=== PATIENT | male | born 1990 | race Caucasian/White ===

== ENCOUNTER 2020-04-17 07:39 | Emergency (ER) | payer OTHER, SELFPAY ==
[2020-04-17 08:07] VITALS: BP 124/75; PULSE 84; RESP 18; TEMP 36.9; O2SAT 98; BMI 29.9
--- NOTE | 2020-04-17 08:33 | ED.PSYCH ---
HPI - Psych General Chief Complaint: Psychiatric Symptoms <JODY Whyte - Last Filed: 04/17/20 15:00> Stated Complaint: CRISIS <JODY Whyte - Last Filed: 04/17/20 15:00> Time Seen by Provider: 04/17/20 08:13 <JODY Whyte Last Filed: 04/17/20 15:00> Source: patient and family <JODY Whyte - Last Filed: 04/17/20 15:00> Mode of arrival: ambulatory <JODY Whyte - Last Filed: 04/17/20 15:00> Limitations: no limitations <JODY Whyte Last Filed: 04/17/20 15:00> History of Present Illness HPI Narrative: 29 y/o male with history of anxiety, depression, HTN, IVDA recently started on Suboxone who presents to the ED today with reports of increased stress and not feeling right. Patient is very vague historian and most of history was obtained from his girlfriend who brought him to the ER. She reports he was started on Suboxone about 1 week ago and he has had significant behavioral changes since. He is now very paranoid, he is unable to maintain eye contact and acting very strange. Patient admits to continuing to use heroin despite being on Suboxone. First he denied SI but then stated he has been having these thoughts. No specific plan. Denies hallucinations. Father has a history of schizophrenia. <JODY Whyte - Last Filed: 04/17/20 15:00> MD complaint: suicidal ideation, feels depressed and substance abuse <JODY Whyte - Last Filed: 04/17/20 15:00> Onset (ago): week(s) (1) <JODY Whyte - Last Filed: 04/17/20 15:00> Duration: intermittent and changing over time <JODY hWyte - Last Filed: 04/17/20 15:00> History of same: No <JODY Whyte Last Filed: 04/17/20 15:00> Relieving factors: none <JODY Whyte Last Filed: 04/17/20 15:00> Exacerbating factors: drug use <JODY Whyte - Last Filed: 04/17/20 15:00> Context: recent drug abuse <JODY Whyte - Last Filed: 04/17/20 15:00> Associated psychiatric symptoms: depression and suicidal ideation <JODY Whyte - Last Filed: 04/17/20 15:00> Associated symptoms: denies other symptoms <JODY Whyte - Last Filed: 04/17/20 15:00> Treatments prior to arrival: none <JODY Whyte - Last Filed: 04/17/20 15:00> If self harm: admits thoughts of self harm <JODY Whyte - Last Filed: 04/17/20 15:00> Related Data Allergies/Adverse Reactions: Allergies Allergy/AdvReac Type Severity Reaction Status Date / Time No Known Allergies Allergy Unverified 02/23/20 16:53 [No Known Allergies*] <JODY Whyte - Last Filed: 04/17/20 15:00> Review of Systems Review of Systems: Constitutional: No Fever, No Chills Cardiovascular: No Chest Pain, No SOB, No Orthopnea, No Edema Respiratory: No Cough, No Sputum, No Wheezing, No dyspnea Gastrointestinal: No Nausea, No Vomiting, No Diarrhea, No abdominal Pain Genitourinary: No Dysuria, No Urinary Frequency, No Hematuria Musculoskeletal: No joint pain, No Myalgias Skin: No Skin Lesions, No rash Neuro: No Weakness, No Numbness, No Dizziness, No Headache Psych: + Anxiety/Panic, + Depression, No AH, No VH Heme/Lymph: No Bruising, No Lymphadenopathy <JODY Whyte - Last Filed: 04/17/20 15:00> PMF Past Medical History Attestation statement: The following information was validated with the patient. <JODY Whtye - Last Filed: 04/17/20 15:00> Medical History: Medical History Anxiety Depression <JODY Whyte Last Filed: 04/17/20 15:00> Social History Social History: Social History Alcohol intake: former Smoking Status: Former smoker Smoked in Last 30 Days: No Use of substances other than those prescribed or required for medical reasons: No Advance Directives: No Advance Directives Information Provided: No <JODY Whyte - Last Filed: 04/17/20 15:00> Physical Exam Vital Signs: Vital Signs: Last Vital Signs Temp 98.5 F 04/17/20 08:07 Pulse 84 04/17/20 08:07 Resp 18 04/17/20 08:07 BP 124/75 04/17/20 08:07 Pulse Ox 98 04/17/20 08:07 Body Mass Index 29.9 Appearance: Alert. Oriented X3. No acute distress. Eyes: Pupils equal, round and reactive to light. ENT: Pharynx normal. Neck: Normal inspection. CVS: Normal heart rate and rhythm. Pulses normal. Respiratory: No respiratory distress. Breath sounds normal. Abdomen: Soft and nontender. +BS x4 Skin: Skin warm and dry. Normal skin color. Normal skin turgor. No rashes. Extremities: No lower extremity edema. Psych: Oriented X 3. Withdrawn, flat affect. positive SI. Difficulty maintaining eye contact. <JODY Whyte - Last Filed: 04/17/20 15:00> Vital Signs: Last Vital Signs Temp 98.5 F 04/17/20 08:07 Pulse 84 04/17/20 08:07 Resp 18 04/17/20 08:07 BP 124/75 04/17/20 08:07 Pulse Ox 98 04/17/20 08:07 Body Mass Index 29.9 <Haile Quinones MD - Last Filed: 04/20/20 02:02> Course Course Course Narrative: 29 y/o male with anxiety/depression, heroin abuse on Suboxone presenting with new onset paranoia and behavioral changes. Admits to SI. Concern for new onset schizophrenia give his family history. Labs and Utox pending. Will have N see. <JODY Whyte - Last Filed: 04/17/20 15:00> I have reviewed the chart <Haile Quinones MD - Last Filed: 04/20/20 02:02> Reevaluation(s) Reevaluation #1: [facility] saw the patient. Had lengthy discussion with patient's girlfriend who he lives with. Concern for schizophrenia dx given presentation and history. She does not feel he is a threat to himself or others. He is denying SI/HI/AH/VH at this time. Resources were provided and patient will follow up with providers in the community. <JODY Whyte - Last Filed: 04/17/20 15:00> Consultations Consultation #1: ELENA <JODY Whyte - Last Filed: 04/17/20 15:00> MDM - Psych Medical Records Attestation: I reviewed the patient's medical records. <JODY Whyte - Last Filed: 04/17/20 15:00> Lab Data Attestation: I reviewed the patient's lab results. <JODY Whyte - Last Filed: 04/17/20 15:00> Result diagrams: : 04/17/20 08:28 04/17/20 08:28 <JODY Whyte - Last Filed: 04/17/20 15:00> Labs: Lab Results 04/17/20 04/17/20 04/17/20 Range/Units 08:28 08:28 08:28 WBC 11.1 H (4.8-10.8) X10*3/uL RBC 5.43 (4.60-5.80) X10*6/uL Hgb 14.5 (14.0-18.0) g/dl Hct 45.0 (42-52) % MCV 82.9 (80-98) fL MCH 26.7 L (27.0-33.0) pg MCHC 32.2 (31.0-36.0) g/dl RDW 13.7 (11.0-16.0) % Plt Count 372 (160-400) X10*3/uL MPV 8.9 L (9.4-12.4) fL Immature Gran % (Auto) 0.3 (0.0-0.4) % Neut % (Auto) 77.8 H (45-73) % Lymph % (Auto) 12.2 L (20-40) % [place] % (Auto) 8.3 (2-11) % Eos % (Auto) 1.1 (0-4) % Baso % (Auto) 0.3 (0-2) % Lymph # (Auto) 1.4 (1.2-4.9) X10*3/uL [place] # (Auto) 0.9 (0.1-1.2) X10*3/uL Eos # (Auto) 0.1 (0.0-0.4) X10*3/uL Baso # (Auto) 0.0 (0.0-0.2) X10*3/uL Abs Immat Gran (auto) 0.03 (0.00-0.03) X10*3/uL Absolute Neuts (auto) 8.7 H (2.0-8.3) X10*3/uL Absolute Nucleated RBC 0.000 (0.0-0.012) X10*3/uL Nucleated RBC % (auto) 0.0 (0.0-0.2) /100WBC Sodium 141 (135-145) mmol/L Potassium 4.0 (3.3-5.1) mmol/l Chloride 105 (96-108) mmol/L Carbon Dioxide 27 (22-29) mmol/L Anion Gap 13 (12-20) BUN 16 (9-16) mg/dL Creatinine 0.91 (0.5-1.4) mg/dL Estim Creat Clear Calc 115.7 Estimated GFR > 60 Random Glucose 88 (60-115) mg/dL Calcium 9.5 (8.4-10.2) mg/dL Total Bilirubin 0.5 (0.0-1.0) mg/dL AST 25 (5-37) U/L ALT 17 (0-40) U/L Alkaline Phosphatase 105 (39-117) U/L Total Protein 8.0 (6.5-8.0) g/dL Albumin 4.8 (3.5-5.0) g/dL Ethyl Alcohol < 10 mg/dL <JODY Whyte - Last Filed: 04/17/20 15:00> Lab Results 04/17/20 04/17/20 04/17/20 Range/Units 08:28 08:28 08:28 WBC 11.1 H (4.8-10.8) X10*3/uL RBC 5.43 (4.60-5.80) X10*6/uL Hgb 14.5 (14.0-18.0) g/dl Hct 45.0 (42-52) % MCV 82.9 (80-98) fL MCH 26.7 L (27.0-33.0) pg MCHC 32.2 (31.0-36.0) g/dl RDW 13.7 (11.0-16.0) % Plt Count 372 (160-400) X10*3/uL MPV 8.9 L (9.4-12.4) fL Immature Gran % (Auto) 0.3 (0.0-0.4) % Neut % (Auto) 77.8 H (45-73) % Lymph % (Auto) 12.2 L (20-40) % [place] % (Auto) 8.3 (2-11) % Eos % (Auto) 1.1 (0-4) % Baso % (Auto) 0.3 (0-2) % Lymph # (Auto) 1.4 (1.2-4.9) X10*3/uL [place] # (Auto) 0.9 (0.1-1.2) X10*3/uL Eos # (Auto) 0.1 (0.0-0.4) X10*3/uL Baso # (Auto) 0.0 (0.0-0.2) X10*3/uL Abs Immat Gran (auto) 0.03 (0.00-0.03) X10*3/uL Absolute Neuts (auto) 8.7 H (2.0-8.3) X10*3/uL Absolute Nucleated RBC 0.000 (0.0-0.012) X10*3/uL Nucleated RBC % (auto) 0.0 (0.0-0.2) /100WBC Sodium 141 (135-145) mmol/L Potassium 4.0 (3.3-5.1) mmol/l Chloride 105 (96-108) mmol/L Carbon Dioxide 27 (22-29) mmol/L Anion Gap 13 (12-20) BUN 16 (9-16) mg/dL Creatinine 0.91 (0.5-1.4) mg/dL Estim Creat Clear Calc 115.7 Estimated GFR > 60 Random Glucose 88 (60-115) mg/dL Calcium 9.5 (8.4-10.2) mg/dL Total Bilirubin 0.5 (0.0-1.0) mg/dL AST 25 (5-37) U/L ALT 17 (0-40) U/L Alkaline Phosphatase 105 (39-117) U/L Total Protein 8.0 (6.5-8.0) g/dL Albumin 4.8 (3.5-5.0) g/dL Ethyl Alcohol < 10 mg/dL <Haile Quinones MD - Last Filed: 04/20/20 02:02> Discharge Plan Discharge Clinical Impression: Acute paranoia <JODY Whyte - Last Filed: 04/17/20 15:00> Patient Disposition: Home, Self-Care <JODY Whyte - Last Filed: 04/17/20 15:00> Instructions: Stress (ED), Anxiety (ED), Opioid Use Disorder (ED) <JODY Whyte - Last Filed: 04/17/20 15:00> Additional Instructions: Follow up with the providers that were given to you to today to help with your stress and anxiety. You would benefit from psychotherapy. Do not use IV opiates, it can kill you. Continue taking your Suboxone as prescribed. If you develop thoughts of self harm call 911 or come back to the ER for further evaluation. <JODY Whyte - Last Filed: 04/17/20 15:00> Interventions: ED Discharge Assessment Last Done: 04/17/20 15:07 <JODY Whyte - Last Filed: 04/17/20 15:00> Discharge Date/Time: 04/17/20 15:07 <JODY Whyte - Last Filed: 04/17/20 15:00>
[2020-04-17 08:35] LABS: MANUAL DIFF FLAG NO
[2020-04-17 08:38] LABS: Basophils Percent Auto 0.3 % (0-2); Eosinophils Absolute Auto 0.1 X10*3/uL (0.0-0.4); Eosinophils Percent Auto 1.1 % (0-4); Hemoglobin 14.5 g/dl (14.0-18.0); Imm Gran Abs Auto 0.03 X10*3/uL (0.00-0.03); Imm Gran Pct Auto 0.3 % (0.0-0.4); Lymphocytes Absolute Auto 1.4 X10*3/uL (1.2-4.9); Lymphocytes Percent Auto 12.2 % (20-40); Mean Corpuscular HGB Conc 32.2 g/dl (31.0-36.0); Mean Corpuscular Hemoglobin 26.7 pg (27.0-33.0); Mean Corpuscular Volume 82.9 fL (80-98); Mean Platelet Volume 8.9 fL (9.4-12.4); Monocytes Absolute Auto 0.9 X10*3/uL (0.1-1.2); Monocytes Percent Auto 8.3 % (2-11); Neutrophils Absolute Auto 8.7 X10*3/uL (2.0-8.3); Neutrophils Percent Auto 77.8 % (45-73); Platelet Count 372 X10*3/uL (160-400); Red Blood Count 5.43 X10*6/uL (4.60-5.80); Red Cell Distribution Width 13.7 % (11.0-16.0); White Blood Count 11.1 X10*3/uL (4.8-10.8)
[2020-04-17 09:00] LABS: Ethanol < 10 mg/dL
[2020-04-17 09:02] LABS: Alanine Aminotransferase 17 U/L (0-40); Albumin Level 4.8 g/dL (3.5-5.0); Alkaline Phosphatase 105 U/L (39-117); Anion Gap 13 (12-20); Aspartate Amino Transferase 25 U/L (5-37); Bilirubin Total 0.5 mg/dL (0.0-1.0); Blood Urea Nitrogen 16 mg/dL (9-16); Calcium 9.5 mg/dL (8.4-10.2); Carbon Dioxide 27 mmol/L (22-29); Chloride 105 mmol/L (96-108); Creatinine Clr Calc Pharmacy 115.7; Estimated Glomerular Filt Rate > 60; Glucose Random 88 mg/dL (60-115); Sodium 141 mmol/L (135-145)
== END 2020-04-17 15:07 | disposition home or self-care (01) ==
PROVIDERS: Physician Assistant; Emergency Provider Emergency Medicine
DX: F33.1 Major depressive disorder, recurrent, moderate (principal); F22 Delusional disorders; Z87.891 Personal history of nicotine dependence; Z79.899 Other long term (current) drug therapy
CPT/HCPCS: 36415; 80053; 80320; 85025; 99284

== ENCOUNTER 2024-10-07 19:57 | Emergency (ER) | payer MEDICAID, SELFPAY ==
--- NOTE | ~2024-10-07 | CT_ITS ---
CLINICAL HISTORY: found on floor, etoh? OD? CT head without contrast Comparison: None Findings: No intra-axial mass, midline shift, hydrocephalus, or acute hemorrhage. No significant atrophy-like change or white matter disease. Diffuse mucosal thickening of the paranasal sinuses. Complete opacification of the frontal sinuses. The orbits are within normal limits. No skull fracture. IMPRESSION: 1. No acute intracranial findings. This document has been electronically signed by: Sai Coello MD on 10/08/2024 01:28:26
[2024-10-07 20:04] VITALS: BP 106/62; BP 140/72; PULSE 103; PULSE 94; RESP 18; TEMP 36.8; O2SAT 95; O2SAT 96; BMI 31.5
--- NOTE | 2024-10-07 20:10 | ECG_ITS ---
Test Reason : CHECK QT Blood Pressure : */* mmHG Vent. Rate : 88 BPM Atrial Rate : 88 BPM P-R Int : 140 ms QRS Dur : 96 ms QT Int : 480 ms P-R-T Axes : 53 25 34 degrees QTcB Int : 580 ms Normal sinus rhythm Minimal voltage criteria for LVH, may be normal variant ( R in aVL ) Prolonged QT Abnormal ECG When compared with ECG of 06-Nov-2019 10:13, QT has lengthened Referred By: Madeline Ulloa Electronically Signed By: Alfred Smalls
[2024-10-07 20:18] VITALS: PULSE 89
[2024-10-07 20:38] LABS: MANUAL DIFF FLAG NO
[2024-10-07 20:39] LABS: Basophils Percent Auto 0.5 % (0-2); Eosinophils Absolute Auto 0.4 X10*3/uL (0.0-0.4); Eosinophils Percent Auto 4.9 % (0-4); Hematocrit 39.2 % (42.0-52.0); Hemoglobin 12.7 g/dl (14.0-18.0); Imm Gran Abs Auto 0.02 X10*3/uL (0.00-0.03); Imm Gran Pct Auto 0.2 % (0.0-0.4); Lymphocytes Absolute Auto 1.6 X10*3/uL (1.2-4.9); Mean Corpuscular HGB Conc 32.4 g/dl (31.0-36.0); Mean Corpuscular Hemoglobin 26.7 pg (27.0-33.0); Mean Corpuscular Volume 82.5 fL (80.0-98.0); Mean Platelet Volume 9.4 fL (9.4-12.4); Monocytes Absolute Auto 0.9 X10*3/uL (0.1-1.2); Monocytes Percent Auto 10.5 % (2-11); Neutrophils Absolute Auto 5.8 x10*3/uL (2.0-8.3); Neutrophils Percent Auto 65.9 % (45-73); Platelet Count 275 X10*3/uL (160-400); Red Blood Count 4.75 X10*6/uL (4.60-5.80); Red Cell Distribution Width 14.1 % (11.0-16.0); White Blood Count 8.8 X10*3/uL (4.8-10.8)
[2024-10-07 20:53] LABS: Magnesium 2.4 mg/dL (1.6-2.6)
[2024-10-07 20:55] LABS: Alanine Aminotransferase 35 U/L (0-40); Albumin Level 4.1 g/dL (3.5-5.0); Alkaline Phosphatase 110 U/L (39-117); Anion Gap 11 (12-20); Aspartate Amino Transferase 48 U/L (5-37); Bilirubin Total 0.1 mg/dL (0.0-1.0); Blood Urea Nitrogen 20 mg/dL (9-16); Carbon Dioxide 29 mmol/L (22-29); Chloride 109 mmol/L (96-108); Creatinine Clr Calc Pharmacy 99.9; Estimated Glomerular Filt Rate > 60; Ethanol < 10 mg/dL; Glucose Random 127 mg/dL (60-115); Potassium 3.6 mmol/L (3.3-5.1); Sodium 145 mmol/L (135-145); Total Protein 7.2 g/dL (6.5-8.0)
[2024-10-07 20:58] LABS: Acetaminophen LAB < 3 mcg/mL (<30); Salicylate < 5.0 mg/dL (15-30)
[2024-10-07 22:20] VITALS: BP 90/49; PULSE 71; RESP 16; TEMP 36.8; O2SAT 94
[2024-10-08 00:38] VITALS: BP 99/57; PULSE 62; RESP 14; TEMP 36.6; O2SAT 97
--- NOTE | 2024-10-08 00:47 | ED.PSYCH ---
HPI - Psych General Chief Complaint: ETOH/Substance Use Stated Complaint: found on ground, took multiple clonapin, in PC Time Seen by Provider: 10/08/24 00:28 Source: patient and EMS Mode of arrival: EMS Limitations: no limitations History of Present Illness ED Provider: Dr. Sydni Tilley HPI Narrative: Patient comes to the emergency room via EMS. According to EMS, the patient was found down by bystanders sleeping on the ground. Patient states that he took a bunch of clonazepam. When patient arrived, he states that he only took 1 tablet. Patient states that he used drugs, does not want to tell us what drugs use. Patient denies being suicidal or homicidal, denies any injuries. Patient states that he feels very sleepy. Denies hitting his head or losing consciousness. Patient denies being on blood thinners. Related Data Allergies Allergy/AdvReac Type Severity Reaction Status Date / Time No Known Allergies Allergy Verified 10/07/24 20:15 [No Known Allergies*] Review of Systems Review of Systems: Yes Other (Very somnolent) [facility] Past Medical History Medical History Depression Anxiety Social History Social History Alcohol intake: former Smoked in Last 30 Days: Yes Use of substances other than those prescribed or required for medical reasons: Refusing to respond Substance Use Type: Marijuana Do you have a plan to hurt others: No Plan Physical Exam Vital Signs: Vital Signs: Last Vital Signs Temp 98 F 10/08/24 00:38 Pulse 62 10/08/24 00:38 Resp 14 10/08/24 00:38 BP 99/57 L 10/08/24 00:38 Pulse Ox 97 10/08/24 00:38 O2 Del Method Room Air 10/08/24 00:38 BMI result Body Mass Index 31.5 Const: Other: Appearance: Somnolent, easily arousable, but keeps falling asleep Eyes: Pupils equal, round and reactive to light. ENT: Pharynx normal. Neck: Normal inspection. Neck supple. No lymph nodes noted. No crepitus CVS: Normal heart rate and rhythm. Pulses normal. Normal S1 and S2 Respiratory: No respiratory distress. Breath sounds normal. No Wheezing. No rales Abdomen: Soft and nontender. No rigidity. No distention. Skin: Skin warm and dry. Normal skin color. Normal skin turgor. Extremities: No lower extremity edema. No Lacerations. No Rash Neuro: Too somnolent to follow any commands. Psych: calm, somnolent Course Course Course Narrative: All of patient's labs pending, CT scan of the head pending. Patient has no obvious signs of trauma Vitals stable Medical Decision Making Medical Decision Making [facility] Narrative: My interpretation of labs: No significant abnormality in patient's hematology and chemistry, normal LFTs, normal troponin, ETOH, salicylates and acetaminophen levels negative Patient has not provided a urinalysis, still pending CT scan of the head does not show any acute abnormality. When patient becomes more awake, we will reassess again for SI HI. So far, patient has been consistent stating that he is not SI or HI. Patient's vitals stable, patient was able to walk with steady unassisted walk to get his CT scan done, answering questions appropriately. Plan: Metabolize to freedom reassess, based on previous patient's answers, likely to be discharged in the morning Sign-out given to my colleague Dr. Fernandez Differential Diagnosis Differential Diagnoses: The differential diagnosis associated with the presentation includes (Polysubstance abuse, alcohol abuse, head injury) Admission/Observation Consideration of admission/observation: Escalation of care including admission/observation considered (Given patient's presentation, observation is considered. Patient is under physician observation) Lab Data [facility] Lab Attestation statement: I reviewed the patient's lab results. 10/07/24 20:33 10/07/24 20:33 Labs: Lab Results 10/07/24 Range/Units 20:33 WBC 8.8 (4.8-10.8) X10*3/uL RBC 4.75 (4.60-5.80) X10*6/uL Hgb 12.7 L (14.0-18.0) g/dl Hct 39.2 L (42.0-52.0) % MCV 82.5 (80.0-98.0) fL MCH 26.7 L (27.0-33.0) pg MCHC 32.4 (31.0-36.0) g/dl RDW 14.1 (11.0-16.0) % Plt Count 275 (160-400) X10*3/uL MPV 9.4 (9.4-12.4) fL Immature Gran % (Auto) 0.2 (0.0-0.4) % Neut % (Auto) 65.9 (45-73) % Lymph % (Auto) 18.0 L (20-40) % [place] % (Auto) 10.5 (2-11) % Eos % (Auto) 4.9 H (0-4) % Baso % (Auto) 0.5 (0-2) % Lymph # (Auto) 1.6 (1.2-4.9) X10*3/uL [place] # (Auto) 0.9 (0.1-1.2) X10*3/uL Eos # (Auto) 0.4 (0.0-0.4) X10*3/uL Baso # (Auto) 0.0 (0.0-0.2) X10*3/uL Abs Immat Gran (auto) 0.02 (0.00-0.03) X10*3/uL Absolute Neuts (auto) 5.8 (2.0-8.3) x10*3/uL Absolute Nucleated RBC 0.000 (0.0-0.012) X10*3/uL Nucleated RBC % (auto) 0.0 (0.0-0.2) /100WBC Sodium 145 (135-145) mmol/L Potassium 3.6 (3.3-5.1) mmol/L Chloride 109 H (96-108) mmol/L Carbon Dioxide 29 (22-29) mmol/L Anion Gap 11 L (12-20) BUN 20 H (9-16) mg/dL Creatinine 1.03 (0.5-1.4) mg/dL Estim Creat Clear Calc 99.9 Estimated GFR > 60 Random Glucose 127 H (60-115) mg/dL Calcium 9.0 (8.4-10.2) mg/dL Magnesium 2.4 (1.6-2.6) mg/dL Total Bilirubin 0.1 (0.0-1.0) mg/dL AST 48 H (5-37) U/L ALT 35 (0-40) U/L Alkaline Phosphatase 110 (39-117) U/L Troponin I High Sens < 2.7 (<3.5-35.0) ng/L Total Protein 7.2 (6.5-8.0) g/dL Albumin 4.1 (3.5-5.0) g/dL Salicylates < 5.0 L (15-30) mg/dL Acetaminophen < 3 (<30) mcg/mL Ethyl Alcohol < 10 mg/dL Independent Interpretation I performed an independent interpretation of an: CT Scan Radiology Impression Discussion of test interpretation with radiology: I have reviewed the radiologist's reading. Radiologist Impression: No intra-axial mass, midline shift, hydrocephalus, or acute hemorrhage. No significant atrophy-like change or white matter disease. Diffuse mucosal thickening of the paranasal sinuses. Complete opacification of the frontal sinuses. The orbits are within normal limits. No skull fracture. IMPRESSION: 1. No acute intracranial findings. Critical Care Time Critical Care Time Critical Care Time: Yes Total Critical Care Time: 35 Attestation: I have personally provided critical care time. Time includes review of lab data, radiology results, discussion with consultants, and monitoring for potential decompensation. Intervention performed as documented. Discharge Plan Discharge Clinical Impression: Polysubstance abuse Print Language: Wolof
[2024-10-08 00:55] LABS: Troponin-I High Sensitivity < 2.7 ng/L (<3.5-35.0)
[2024-10-08 03:05] VITALS: BP 115/68; PULSE 58; RESP 16; TEMP 36.1; O2SAT 96
[2024-10-08 04:15] VITALS: BP 108/64; PULSE 65; RESP 16; TEMP 36; O2SAT 92
--- NOTE | 2024-10-08 05:38 | PC.NURSE ---
Pt continues to remain sleeping on stretcher.
[2024-10-08 06:31] VITALS: BP 111/64; PULSE 56; RESP 16; TEMP 36.1; O2SAT 94
[2024-10-08 06:51] VITALS: BP 111/64; PULSE 56; RESP 16; TEMP 36.1; O2SAT 94
== END 2024-10-08 06:54 | disposition home or self-care (01) ==
LOC: HO.ED 10-08 06:50
PROVIDERS: Nurse Practitioner Family; Emergency Provider Emergency Medicine
DX: F19.10 Other psychoactive substance abuse, uncomplicated (principal); R40.0 Somnolence
CPT/HCPCS: 36415; 70450; 80053; 80143; 80179; 80307; 83735; 84484; 85025; 93005; 99284; 99285

== ENCOUNTER → 2024-10-07 20:10 | Outpatient (BNV) | payer SELFPAY | PROVIDERS: Emergency Provider Emergency Medicine; Visit Provider Internal Medicine Cardiovascular Disease | DX: I45.81 Long QT syndrome (principal) | CPT/HCPCS: 93010 ==

== ENCOUNTER → 2024-10-08 00:49 | Outpatient (BNV) | payer OTHER, SELFPAY | PROVIDERS: Emergency Provider Emergency Medicine; Visit Provider Radiology Diagnostic Radiology | DX: F19.20 Other psychoactive substance dependence, uncomplicated (principal) | CPT/HCPCS: 70450 ==

== ENCOUNTER 2024-10-22 07:27 | Emergency (ER) | payer MEDICAID, SELFPAY ==
[2024-10-22 07:30] VITALS: BP 121/70; PULSE 69; RESP 18; TEMP 36.8; O2SAT 97; BMI 32.1
--- NOTE | 2024-10-22 08:30 | ED_ITS ---
HPI - Headache General Chief Complaint: Headache Stated Complaint: Migraines Time Seen by Provider: 10/22/24 08:08 Source: patient Mode of arrival: ambulatory Limitations: no limitations History of Present Illness ED Provider: SERGO MILIAN PA-C HPI Narrative: 34-year-old male with pmhx significant for polysubstance abuse presents to the ED today for evaluation of headache x3 months. Reports sharp pains primarily to the left side of his head that have been intermittent x2-3 months. Reports pain occurs approximately one time daily and lasts only seconds before completely resolving. He has not trialed anything at home for the pain. Reports hx of headaches prior to this. Admits to an episode of blurred vision months ago that seemed unrelated to his headache. No episodes of blurred vision or other vision changes since. He does not wear corrective lenses. He denies any symptoms or pain at present. Denies fever, chills, neck pain, vision changes, chest pain/ palpitations, N/V, photophobia, scalp tenderness, jaw claudication. Denies any illicit substance use (specifically cocaine) - states he is on methadone. Denies recent head strikes/ falls/ trauma. Of note, patient was evaluated at our facility two weeks ago on 10/08/[address] Related Data Previous Rx's ?Medication ?Instructions ?Recorded amoxicillin 875 mg-potassium 1 tab PO BID 7 days #14 tabs 10/22/24 clavulanate 125 mg tablet Allergies Allergy/AdvReac Type Severity Reaction Status Date / Time No Known Allergies Allergy Verified 10/22/24 07:36 [No Known Allergies*] Review of Systems 2 Review of Systems: Yes all other systems are reviewed and are negative PMFSH Past Medical History Attestation statement: The following information was validated with the patient. Source: old records reviewed and nursing notes reviewed Medical History Depression Anxiety Social History Social History Alcohol intake: former Smoked in Last 30 Days: Yes Use of substances other than those prescribed or required for medical reasons: No Substance Use Type: Marijuana Advance Directives: No Advance Directives Information Provided: No Physical Exam 2 Vital Signs: Vital Signs: Last Vital Signs Temp 98.2 F 10/22/24 07:30 Pulse 60 10/22/24 09:57 Resp 18 10/22/24 09:57 BP 106/70 10/22/24 09:57 Pulse Ox 99 10/22/24 09:57 O2 Del Method Room Air 10/22/24 09:57 BMI result Body Mass Index 32.1 vital signs stable, afebrile General: Well appearing, in no acute distress. Skin: Warm, dry, intact. No rashes or lesions. Head: Normocephalic, atraumatic. Tender to percussion over left maxillary and frontal sinuses. no scalp tenderness, no palpable temporal artery. EENT: Hearing is intact b/l. Conjunctiva clear. PERRLA. EOM intact. Moist mucous membranes.? Cardiac: Chest wall symmetric. RRR Lungs: Normal respiratory effort without accessory muscle use. CTA bilaterally. Abdomen: Soft, non-tender, non-distended. No rebound tenderness or guarding Back: No midline spinous or paraspinal tenderness. No step off deformity. Ext: Upper and lower extremities atraumatic, without tenderness, deformity, swelling or erythema. Full ROM throughout. Strength 5/5 throughout. Capillary refill <2 seconds in all extremities. Pulses 2+ equal and bilateral. Neuro: AOx3. Normal speech. NIH 0. No pronator drift, slurred speech, facial droop. Strength 5/5 intact throughout. Sensation intact to light touch. NV intact distally. Ambulating with steady gait. Course Course Course Narrative: 0842 -- on chart review, patient was evaluated in our our facility 2 weeks ago on 10/08/2024. Head CT at that time did not reveal acute hemorrhage or mass. Incidental finding of diffuse mucosal thickening of the paranasal sinuses with complete opacification of the frontal sinuses. Otherwise unremarkable. Given his symptoms began 3 months ago and have essentially been unchanged, I do not feel as though repeat imaging is warranted at this time. His history and exam findings are not consistent with acute ischemic stroke or infarct and I do not feel as though CTA head neck is warranted at this time. I discussed this with patient and he feels this is reasonable. Will obtain screening labs to check for electrolyte abnormalities. Inflammatory markers added on to assess for GCA although less likely. Denies any pain/ complaints at present. No medication warranted at this time. 1206 -- CBC without leukocytosis. normocytic anemia, stable when compared to priors. h&h above transfusion threshold. chemistry without acute electrolyte abnormality requiring intervention. no KATHY. liver function wnl. inflammatory markers wnl. delay in serology results as lab did not run the tests. viral serology negative. > work up unremarkable. > on further questioning, patient states he has felt congested recently - he is tender to percussion of frontal and L maxillary sinus. given sinusitis on CT scan 2 weeks ago, will treat w/ PO Augmentin. first dose given in ED today. patient agreeable. advised Tylenol/Motrin at home. neurology referral provided for follow up if symptoms persist. I still do not feel repeat imaging is warranted at this time. Patient has remained stable throughout ED visit today. Discussed worrisome signs and symptoms and when to return to the ED. All questions answered at this time. Patient is agreeable with disposition and stable for discharge. Medications Administered Discontinued Medications Generic Name Dose Route Start Last Admin Trade Name Freq PRN Reason Stop Dose Admin Amoxicillin/Clavulanate Potassium 875 mg 10/22/24 09:37 10/22/24 10:03 Amoxicillin/Potassium Clav 875 Mg Tablet PO 10/22/24 09:38 875 mg ONCE ONE Administration Medical Decision Making Medical Decision Making [facility] Narrative: 34-year-old male with pmhx significant for polysubstance abuse presents to the ED today for evaluation of headache x3 months. Vital signs stable. Afebrile. Differential diagnosis includes anemia, electrolyte abnormality, dehydration, viral syndrome, migraine vs tension type headache, sinusitis. No headache red flags. Neurologic exam without evidence of meningismus. No focal neurologic findings. Presentation not consistent with acute intracranial bleed including SAH. Presentation not consistent with acute [employer] infection including meningitis or brain abscess. Temporal arteritis unlikely, as is acute angle closure glaucoma given history and physical findings. Presentation not consistent with other acute, emergent causes of headache at this time. Plan to treat symptomatically with pain medication. No indication for LP at this time. Plan: labs, viral swabs, reassessment Differential Diagnosis Differential Diagnoses: The differential diagnosis associated with the presentation includes As above Admission/Observation Not indicated Lab Data [facility] Lab Attestation statement: I reviewed the patient's lab results. As above 10/22/24 08:54 10/22/24 08:54 Labs: Lab Results 10/22/24 10/22/24 Range/Units 08:54 09:57 WBC 7.3 (4.8-10.8) X10*3/uL RBC 4.81 (4.60-5.80) X10*6/uL Hgb 12.7 L (14.0-18.0) g/dl Hct 40.3 L (42.0-52.0) % MCV 83.8 (80.0-98.0) fL MCH 26.4 L (27.0-33.0) pg MCHC 31.5 (31.0-36.0) g/dl RDW 14.7 (11.0-16.0) % Plt Count 310 (160-400) X10*3/uL MPV 8.9 L (9.4-12.4) fL Immature Gran % (Auto) 0.3 (0.0-0.4) % Neut % (Auto) 56.3 (45-73) % Lymph % (Auto) 22.1 (20-40) % [place] % (Auto) 9.4 (2-11) % Eos % (Auto) 11.4 H (0-4) % Baso % (Auto) 0.5 (0-2) % Lymph # (Auto) 1.6 (1.2-4.9) X10*3/uL [place] # (Auto) 0.7 (0.1-1.2) X10*3/uL Eos # (Auto) 0.8 H (0.0-0.4) X10*3/uL Baso # (Auto) 0.0 (0.0-0.2) X10*3/uL Abs Immat Gran (auto) 0.02 (0.00-0.03) X10*3/uL Absolute Neuts (auto) 4.1 (2.0-8.3) x10*3/uL Absolute Nucleated RBC 0.000 (0.0-0.012) X10*3/uL Nucleated RBC % (auto) 0.0 (0.0-0.2) /100WBC ESR 10 (0-15) MM/HR Sodium 139 (135-145) mmol/L Potassium 4.2 (3.3-5.1) mmol/L Chloride 105 (96-108) mmol/L Carbon Dioxide 27 (22-29) mmol/L Anion Gap 11 L (12-20) BUN 11 (9-16) mg/dL Creatinine 0.75 (0.5-1.4) mg/dL Estim Creat Clear Calc 138.3 Estimated GFR > 60 Random Glucose 88 (60-115) mg/dL Calcium 8.8 (8.4-10.2) mg/dL Magnesium 1.9 (1.6-2.6) mg/dL Total Bilirubin 0.1 (0.0-1.0) mg/dL AST 22 (5-37) U/L ALT 23 (0-40) U/L Alkaline Phosphatase 105 (39-117) U/L C-Reactive Protein 0.37 (< or = 0.50) mg/dL Total Protein 6.9 (6.5-8.0) g/dL Albumin 3.8 (3.5-5.0) g/dL Influenza Type A (PCR) NEGATIVE (Negative) Influenza Type B (PCR) NEGATIVE (Negative) RSV RNA Qual (PCR) NEGATIVE (Negative) SARS-CoV-2 RNA (RT-PCR) NEGATIVE (Negative) Independent Interpretation I performed an independent interpretation of an: CT Scan Interpretation: CT head/brain from 10/08/2024 without intracranial mass or bleed Radiology Impression Discussion of test interpretation with radiology: I have reviewed the radiologist's reading. Radiologist Impression: Procedure(s): CT head/brain wo IV con Accession Number(s): [id number] cc: Sydni Tilley MD~ Report Number: [id number]: Total DLP = 864.00 mGy-cm CLINICAL HISTORY: found on floor, etoh? OD? CT head without contrast Comparison: None Findings: No intra-axial mass, midline shift, hydrocephalus, or acute hemorrhage. No significant atrophy-like change or white matter disease. Diffuse mucosal thickening of the paranasal sinuses. Complete opacification of the frontal sinuses. The orbits are within normal limits. No skull fracture. IMPRESSION: 1. No acute intracranial findings. This document has been electronically signed by: Sai Coello MD on 10/08/2024 01:28:26 External Record Review External record reviewed: Inpatient record Prescription Management I considered prescription management with: Pain Medication Social Determinants Patient?s care significantly limited by Social Determinants of Health including: Other Social Determinant of Health Critical Care Time Critical Care Time Critical Care Time: No Discharge Plan Discharge Clinical Impression: Sinusitis Patient Disposition: Home, Self-Care Instructions: Sinusitis (ED) Additional Instructions: You have been evaluated in the Emergency Department today for headache. Your blood work is reassuring. You tested negative for covid, flu, and rsv. The CT scan of your head obtained on 10/08/34 (2 weeks ago) does not show any brain mass or bleed. It does show mucosal thickening of your sinuses, consisted with a sinus infection. Given your physical exam findings, you will be treated for sinus infection with oral antibiotics. Augmentin is an antibiotic that has been sent to your pharmacy for treatment. You were given your first dose of this in the ED today. On Augmentin, softer bowel movements are to be expected. Call your provider if you move your bowels more than 4 times a day, your bowel movements are almost all liquid, or you get a rash.? I recommend you take 600mg ibuprofen every 6 hours or Tylenol 650mg every 6 hours as needed for pain. If needed, you can alternate these medications so that you take one medication every 3 hours. For example, at noon take ibuprofen, then at 3pm take Tylenol, then at 6pm take ibuprofen. After discussion, there is no further imaging of your head warranted at this time. Please follow up with your primary care physician within two days. I have also provided you with a referral to a neurologist. You may call them to establish care. They will not call you. Return to the Emergency Department if you experience worsening or uncontrolled pain, vision changes, recurrent vomiting, difficulty with normal activities, abnormal behavior, difficulty walking, numbness, weakness, or any other concerning symptoms. Prescriptions: New amoxicillin-pot clavulanate 875-125 mg tablet 1 tab PO BID 7 Days Qty: 14 0RF Referrals: [facility] [Provider Group] Physician,Unknown J [Primary Care Provider] - Print Language: Slovak
[2024-10-22 08:59] LABS: MANUAL DIFF FLAG NO
[2024-10-22 09:03] LABS: Basophils Percent Auto 0.5 % (0-2); Eosinophils Absolute Auto 0.8 X10*3/uL (0.0-0.4); Eosinophils Percent Auto 11.4 % (0-4); Hematocrit 40.3 % (42.0-52.0); Hemoglobin 12.7 g/dl (14.0-18.0); Imm Gran Abs Auto 0.02 X10*3/uL (0.00-0.03); Imm Gran Pct Auto 0.3 % (0.0-0.4); Lymphocytes Absolute Auto 1.6 X10*3/uL (1.2-4.9); Lymphocytes Percent Auto 22.1 % (20-40); Mean Corpuscular HGB Conc 31.5 g/dl (31.0-36.0); Mean Corpuscular Hemoglobin 26.4 pg (27.0-33.0); Mean Corpuscular Volume 83.8 fL (80.0-98.0); Mean Platelet Volume 8.9 fL (9.4-12.4); Monocytes Absolute Auto 0.7 X10*3/uL (0.1-1.2); Monocytes Percent Auto 9.4 % (2-11); Neutrophils Absolute Auto 4.1 x10*3/uL (2.0-8.3); Neutrophils Percent Auto 56.3 % (45-73); Platelet Count 310 X10*3/uL (160-400); Red Blood Count 4.81 X10*6/uL (4.60-5.80); Red Cell Distribution Width 14.7 % (11.0-16.0); White Blood Count 7.3 X10*3/uL (4.8-10.8)
--- NOTE | 2024-10-22 09:10 | PC.NURSE ---
patient a&ox3, vss, labs drawn per order, c/o headache, call larry within reach, plan of care ongoing.
[2024-10-22 09:13] LABS: Alanine Aminotransferase 23 U/L (0-40); Albumin Level 3.8 g/dL (3.5-5.0); Alkaline Phosphatase 105 U/L (39-117); Anion Gap 11 (12-20); Aspartate Amino Transferase 22 U/L (5-37); Bilirubin Total 0.1 mg/dL (0.0-1.0); Blood Urea Nitrogen 11 mg/dL (9-16); C Reactive Protein 0.37 mg/dL (< or = 0.50); Calcium 8.8 mg/dL (8.4-10.2); Carbon Dioxide 27 mmol/L (22-29); Chloride 105 mmol/L (96-108); Creatinine Clr Calc Pharmacy 138.3; Estimated Glomerular Filt Rate > 60; Glucose Random 88 mg/dL (60-115); Magnesium 1.9 mg/dL (1.6-2.6); Potassium 4.2 mmol/L (3.3-5.1); Sodium 139 mmol/L (135-145); Total Protein 6.9 g/dL (6.5-8.0)
[2024-10-22 09:51] LABS: Erythrocyte Sedimentation Rate 10 MM/HR (0-15)
[2024-10-22 09:57] VITALS: BP 106/70; PULSE 60; RESP 18; O2SAT 99
--- NOTE | 2024-10-22 10:00 | PC.NURSE ---
covid swab obtained
[2024-10-22] MEDS: Amoxicillin/Potassium Clav 875 MG TABLET PO (10:03)
[2024-10-22 12:03] LABS: Influenza A PCR NEGATIVE (Negative); Influenza B PCR NEGATIVE (Negative); Resp Syncy Virus RNA Qual PCR NEGATIVE (Negative); SARS COV2 PCR INHOUSE NEGATIVE (Negative)
[2024-10-22 12:18] VITALS: BP 118/72; PULSE 60; RESP 18; TEMP 36.7; O2SAT 99
== END 2024-10-22 12:19 | disposition home or self-care (01) ==
PROVIDERS: Physician Assistant Medical; Emergency Provider Emergency Medicine Emergency Medical Services
DX: J32.9 Chronic sinusitis, unspecified (principal); R51.9 Headache, unspecified; Z03.818 Encounter for observation for suspected exposure to other biological agents ruled out
CPT/HCPCS: 0241U; 36415; 80053; 83735; 85025; 85652; 86140; 99283; 99284